=== PATIENT | female | born 1975 | race Caucasian/White ===

== ENCOUNTER 2019-08-04 19:19 | Emergency (ER) | payer MEDICARE, MEDICAID ==
[~2019-08-04] VITALS: Ht 160 cm; Wt 58.8 kg
[2019-08-04 19:25] VITALS: BP 116/71
[2019-08-04] MEDS ORDERED: TETanus/Pertussis (Acell)/Diphther VAC/PF (Tdap-Adult) 0.5ml syringe IMVAC ONE (20:05)
--- NOTE | 2019-08-04 20:18 | NUR ---
irrigated wound to left index finger with NaCl tolerated well. Tissue pink serous sang drainage
== END 2019-08-04 21:38 | disposition home or self-care (01) ==
LOC: ER 19:20
DX: S61.211A Laceration without foreign body of left index finger without damage to nail, initial encounter (principal); Z56.0 Unemployment, unspecified; Z88.2 Allergy status to sulfonamides; W26.8XXA Contact with other sharp object(s), not elsewhere classified, initial encounter; Y93.89 Activity, other specified; Y92.89 Other specified places as the place of occurrence of the external cause; Y99.8 Other external cause status
CPT/HCPCS: 12001; 99282

== ENCOUNTER 2020-02-20 17:31 | Emergency (ER) | payer MEDICARE, MEDICAID ==
[~2020-02-20] VITALS: Ht 160 cm; Wt 55.0 kg
[2020-02-20 18:15] LABS: CLARITY,URINE CLOUDY (Clear); COLOR,URINE ORANGE (Yellow)
[2020-02-20 18:17] LABS: UA COLLECTION TYPE CLN CATCH MIDSTREAM
[2020-02-20 18:18] LABS: URINE HCG NEGATIVE (NEG)
[2020-02-20] MEDS ORDERED: AMOX-422 PO (18:29)
[2020-02-20 18:49] LABS: BACTERIA,URINE 3+ /HPF (Neg); WBC,URINE TNTC /HPF (0-4)
[2020-02-20 18:50] LABS: MUCUS STRANDS NONE SEEN /LPF (Neg); SQUAMOUS EPITHELIAL CELL,UR FEW /LPF (FEW); WBC CLUMPS,URINE MANY /HPF (NEGATIVE)
[2020-02-21 01:45] VITALS: BP 118/88
== END 2020-02-20 18:18 | disposition home or self-care (01) ==
LOC: ER 17:31
DX: N39.0 Urinary tract infection, site not specified (principal); Z88.2 Allergy status to sulfonamides; Z56.0 Unemployment, unspecified
CPT/HCPCS: 81001; 81025; 87077; 87088; 87186; 99283